=== PATIENT | male | born 1960 | race Caucasian/White ===

== ENCOUNTER 2016-04-26 15:48 | Emergency (ER) | payer OTHER ==
[2016-04-26 16:05] VITALS: BP 136/82; PULSE 97; RESP 16; TEMP 97.1
[2016-04-26] MEDS ORDERED: DIPH,PERTUS(ACELL)TETVAC-LF 0.5 ML VIAL IM ONE (16:05)
--- NOTE | 2016-04-26 16:28 | XR ---
EXAMINATION TYPE: XR hand complete RT DATE OF EXAM ORDERED: 04/26/2016 4:22 PM HISTORY: Crush injury to the distal phalanx of the fifth finger.. COMPARISON: None. FINDINGS: No fracture, dislocation or other acute osseous lesion is seen. There is a soft tissue def ect in the distal phalanx. IMPRESSION: 1. LACERATION OF THE DISTAL PHALANX OF THE RIGHT FIFTH DIGIT. 2. NO ACUTE OSSEOUS LESION.
[2016-04-26] MEDS ORDERED: HYDROcodone/APAP 5-325MG 1 EACH TAB PO STA (17:24)
[2016-04-26] MEDS ORDERED: IBUPROFEN 400 MG TAB PO STA (17:29)
--- NOTE | 2016-04-26 17:35 | ED ---
General Adult HPI - General Chief complaint: Extremity Injury, Upper Stated complaint: Smashed/Finger Time Seen by Provider: 04/26/16 16:04 Source: patient, RN notes reviewed Mode of arrival: ambulatory Limitations: no limitations - History of Present Illness Initial comments: This is a 55-year-old male presents with a crush injury to the right fifth finger. Patient states he was working with a feeding barrel was approximately 250 pounds and he dropped it from about 1 foot onto the right pinky. Patient is not up-to-date on his tetanus shot. Patient is not on any anticoagulants. Patient has chronic numbness and limited range of motion to this finger from a past injury. Patient states that none of this is worse.Patient denies any recent fever, chills, shortness breath, chest pain, abdominal pain, nausea/ vomiting/diarrhea, back pain, hematuria, headache, or visual changes, or any other complaints. - Related Data Previous Rx's Medication Instructions Recorded Cephalexin [Keflex] 500 mg PO Q12HR 7 Days 04/26/16 Allergies Allergy/AdvReac Type Severity Reaction Status Date / Time No Known Allergies Allergy Verified 04/26/16 16:05 Review of Systems ROS Statement: Those systems with pertinent positive or pertinent negative responses have been documented in the HPI. ROS Other: All systems not noted in ROS Statement are negative. Past Medical History Past Medical History: No Reported History History of Any Multi-Drug Resistant Organisms: None Reported Past Surgical History: No Surgical Hx Reported Past Psychological History: No Psychological Hx Reported Smoking Status: Never smoker Past Alcohol Use History: None Reported Past Drug Use History: None Reported General Exam - General Exam Comments Initial Comments: General: The patient is awake and alert, in no distress, and does not appear acutely ill. Neck: The neck is supple, there is no tenderness or JVD. Cardiovascular: There is a regular rate and rhythm. No murmur, rub or gallop is appreciated. Respiratory: Lungs are clear to auscultation, respirations are non-labored, breath sounds are equal. No wheezes, stridor, rales, or rhonchi. Musculoskeletal: There is sensation over the DIP joint of the fifth digit of the right hand. There is a approximately 2 cm laceration to the pad of the fifth digit distal to the DIP joint. The nail is partially removed and corrected with a laceration under the nail bed approximately 3mm. Limited range of motion due to pain and chronic injury, strength 5/5 and Sensation intact. Radial pulses 2+ bilaterally. Capillary refill is normal at less than 2 seconds. Neurological: A&O x 3. CN II-XII intact, There are no obvious motor or sensory deficits. Coordination appears grossly intact. Speech is normal. Skin: See musculoskeletal. Skin is warm and dry and no rashes or lesions are noted. Psychiatric: Normal mood and affect. Limitations: no limitations Course Vital Signs 04/26/16 16:03 Temperature 97.1 F L Pulse Rate 97 Respiratory 16 Rate Blood Pressure 136/82 O2 Sat by Pulse 99 Oximetry Procedures - Procedures Initial comment: The skin was anesthetized with 1% lidocaine. The laceration was then cleansed and irrigated with normal saline. The wound was inspected, and there was no evidence of injury to deep structures. No foreign body was noted in the wound. A total of 12 skin sutures were placed utilizing 5-0 Ethilon. 5-0 Vicryl was used to close the laceration to the nailbed. Nail was removed and reattached with 5-0 Ethilon. Laceration is approx 2 cm. Medical Decision Making - Medical Decision Making Is a 55-year-old male presents to the laceration and crush injury to the fifth digit of the right hand. On physical exam There is sensation over the DIP joint of the fifth digit of the right hand. There is a approximately 2 cm laceration to the pad of the fifth digit distal to the DIP joint. The nail is partially removed and corrected with a laceration under the nail bed approximately 3mm. Limited range of motion due to pain and chronic injury, strength 5/5 and Sensation intact. Radial pulses 2+ bilaterally. Capillary refill is normal at less than 2 seconds. Patient was given a tetanus shot in the [facility] today. The skin was anesthetized with 1% lidocaine. The laceration was then cleansed and irrigated with normal saline. The wound was inspected, and there was no evidence of injury to deep structures. No foreign body was noted in the wound. A total of 12 skin sutures were placed utilizing 5-0 Ethilon. 5-0 Vicryl was used to close the laceration to the nailbed. Nail was removed and reattached with 5-0 Ethilon. Laceration is approx 2 cm. patient will be started on a course of Keflex. Patient was given Cranks for the pain. A finger splint was applied.I discussed that sutures need to be removed in 8-10 days. I discussed that rinsing and showering are okay but to avoid submerging the wound in water. I discussed use of topical Neosporin. I discussed return parameters and signs of infection. Discussed that the sutures under the nailbed will dissolve. Discussed that patient needs to keep splint on to protect the finger and follow up with orthopedics in the next 1-2 days. Discussed that patient should follow up with PCP in one to 2 days or return to the [facility] for any worsening symptoms or for any further concerns. Patient was receptive to this plan and patient will be discharged home. Disposition Clinical Impression: Laceration, Crushing injury of finger of right hand, Nail avulsion, finger Disposition: HOME SELF-CARE Condition: Good Instructions: Finger Fracture (ED) Additional Instructions: Please have sutures need to be removed in 8-10 days. The stitches to the nailbed will dissolve. Please leave splint on to protect the finger. Rinsing and showering are okay but avoid submerging the wound in water. Please use Cranks as prescribed. Please follow-up with orthopedics in the next 1-2 days or return to the [facility] for any worsening symptoms or for any further concerns. Prescriptions: Cephalexin [Keflex] 500 mg PO Q12HR 7 Days Referrals: None,Stated [Primary Care Provider] - 1-2 days Clifton Kevin MD [REFERRING] - 1-2 days Jake Luciano III, MD [STAFF PHYSICIAN] - 1-2 days Gregg Pleitez MD [STAFF PHYSICIAN] - 1-2 days Time of Disposition: 17:43
--- NOTE | 2016-04-26 20:35 | ED ---
Medical Decision Making - Medical Decision Making An x-ray of the right hand was done and reviewed showing: #1 laceration of the distal phalanx of the right fifth digit. #2 no acute osseous lesion. Report read by Dr. Marie. I noticed a possible cortical defect to the distal tuft of the right fifth digit when reviewing the x-ray. Consistent with patient's point of maximal tenderness and injury. Discussed with patient to follow up with orthopedics for this and patient was splinted with a finger splint. Disposition Clinical Impression: Laceration, Crushing injury of finger of right hand, Nail avulsion, finger Disposition: HOME SELF-CARE Condition: Good Instructions: Finger Fracture (ED) Additional Instructions: Please have sutures need to be removed in 8-10 days. The stitches to the nailbed will dissolve. Please leave splint on to protect the finger. Rinsing and showering are okay but avoid submerging the wound in water. Please use Prospect as prescribed. Please follow-up with orthopedics in the next 1-2 days or return to the [facility] for any worsening symptoms or for any further concerns. Prescriptions: Cephalexin [Keflex] 500 mg PO Q12HR 7 Days Referrals: Clifton Kevin MD [REFERRING] - 1-2 days Jake Luciano III, MD [STAFF PHYSICIAN] - 1-2 days None,Stated [Primary Care Provider] - 1-2 days Gregg Pleitez MD [STAFF PHYSICIAN] - 1-2 days
== END 2016-04-26 17:50 | disposition home or self-care (01) ==
LOC: EC 15:48
DX: S61.216A Laceration without foreign body of right little finger without damage to nail, initial encounter (principal); Z23 Encounter for immunization; W20.8XXA Other cause of strike by thrown, projected or falling object, initial encounter
CPT/HCPCS: 12051; 90471; 90715; 99283

== ENCOUNTER 2016-12-09 14:03 | Emergency (ER) | payer OTHER ==
[2016-12-09] MEDS ORDERED: IBUPROFEN 800 MG TAB PO STA (14:17)
[2016-12-09 14:20] VITALS: RESP 18
--- NOTE | 2016-12-09 14:21 | ED ---
General Adult HPI - General Stated complaint: Arm Injury Time Seen by Provider: 12/09/16 14:12 Source: RN notes reviewed - History of Present Illness Initial comments: Patient 55-year-old male who presents emergency room today with a chief complaint of an injury to the left forearm that occurred earlier today. He doesn't that he was working when a piece of steel came down hitting the left forearm. He states he was able to keep working. He states that he's been having some increased pain to the area and now when he moves his left hand and wrist also feeling some pain. Patient denies any direct injury to the hand or wrist. He states that his topical forearm elbow area. Patient denies any complaints symptoms. He is right-handed. Patient denies any recent fever, chills, shortness of breath, chest pain, back pain, abdominal pain, nausea or vomiting, numbness or tingling, dysuria or hematuria, constipation or diarrhea, headaches or visual changes, or any other complaints. - Related Data Previous Rx's Medication Instructions Recorded Ibuprofen [Motrin] 800 mg PO Q6HR #30 tab 12/09/16 Allergies Allergy/AdvReac Type Severity Reaction Status Date / Time No Known Allergies Allergy Verified 12/09/16 14:20 Review of Systems ROS Statement: Those systems with pertinent positive or pertinent negative responses have been documented in the HPI. ROS Other: All systems not noted in ROS Statement are negative. Past Medical History Past Medical History: No Reported History History of Any Multi-Drug Resistant Organisms: None Reported Past Surgical History: No Surgical Hx Reported Past Psychological History: No Psychological Hx Reported Smoking Status: Never smoker Past Alcohol Use History: None Reported Past Drug Use History: None Reported General Exam - General Exam Comments Initial Comments: General: The patient is awake and alert, in no distress, and does not appear acutely ill. Neck: The neck is supple, there is no tenderness or JVD. Cardiovascular: There is a regular rate and rhythm. No murmur, rub or gallop is appreciated. Respiratory: Lungs are clear to auscultation, respirations are non-labored, breath sounds are equal. No wheezes, stridor, rales, or rhonchi. Musculoskeletal: He has normal appearance of left elbow no obvious deformity. Shows good range of motion both flexion/extension. Patient's able to pronate and supinate. Patient does have tenderness at the proximal radial head area over the proximal left forearm. Sensations are intact. Pulses equal bilaterally 2+. No point tenderness to the wrist or hand. No tenderness to left shoulder. Neurological: A&O x 3. CN II-XII intact, There are no obvious motor or sensory deficits. Coordination appears grossly intact. Speech is normal. Skin: Skin is warm and dry and no rashes or lesions are noted. Psychiatric: Normal mood and affect. Course Vital Signs 12/09/16 14:12 Temperature 97.8 F Pulse Rate 83 Respiratory 18 Rate Blood Pressure 131/79 O2 Sat by Pulse 96 Oximetry Medical Decision Making - Medical Decision Making X-ray reviewed negative for any acute fracture dislocation. Results were discussed with the patient. Patient advised most likely contusion to ice elevate and use ibuprofen. Advised to follow-up with orthopedics if symptoms persist for repeat x-ray in 7-10 days. Disposition Clinical Impression: Forearm contusion Disposition: HOME SELF-CARE Condition: Good Instructions: Contusion in Adults (ED) Additional Instructions: Please continue to ice elevate the affected area use ibuprofen for pain. Please follow-up the family doctor or orthopedics in 7-10 days if symptoms persist for repeat x-rays. Please return to emergency room for any other concerns. Prescriptions: Ibuprofen [Motrin] 800 mg PO Q6HR #30 tab Referrals: Sher Alvarez DO [Primary Care Provider] - 1-2 days Obi Liu MD [Medical Doctor] - 1-2 days Time of Disposition: 15:00
--- NOTE | 2016-12-09 14:55 | XR ---
EXAMINATION TYPE: XR elbow complete LT DATE OF EXAM: 12/09/2016 COMPARISON: NONE HISTORY: Pain FINDINGS: Three views of the elbow demonstrate no pathologic joint effusion. The osseous structures are intact . There is no acute fracture or dislocation. Lateral view demonstrates punctate metallic density li pamela representing artifact IMPRESSION: 1. No acute fracture or dislocation. If symptoms persist follow-up study in 7 to 10 days could be ob tained.
--- NOTE | 2016-12-09 14:56 | XR ---
EXAMINATION TYPE: XR forearm LT DATE OF EXAM: 12/09/2016 COMPARISON: NONE HISTORY: Pain Two views of the forearm demonstrate that the osseous structures appear to be intact and the joint sp aces appear to be preserved. There is no acute fracture or dislocation. IMPRESSION: 1. No acute fracture or dislocation
[2016-12-09 15:11] VITALS: BP 130/68; PULSE 82; TEMP 98
== END 2016-12-09 15:10 | disposition home or self-care (01) ==
LOC: EC 14:03
DX: S50.12XA Contusion of left forearm, initial encounter (principal); V91.39XA Hit or struck by falling object due to accident to unspecified watercraft, initial encounter; Y93.89 Activity, other specified
CPT/HCPCS: 99283

== ENCOUNTER 2017-04-12 06:33 | Observation (INO) | payer BC, OTHER ==
[2017-04-05 10:25] VITALS: BMI 31.0
[~2017-04-12 06:33] MED LIST: DEXAMETHASONE SOD PHOSPHATE 10 MG/ML 1 ML VIAL IV ONE; MIDAZOLAM 2 MG/2 ML VIAL IV PRN; MORPHINE SULFATE 4 MG/ML SYRINGE IV PRN; ONDANSETRON 4 MG/2 ML VIAL IVP ONE; SCOPOLAMINE 1.5MG/72HR PATCH TRANSDERM ONE; ceFAZolin IN SWFI 2 GM/20 ML SYRINGE IVP ONE
[2017-04-12] MEDS ORDERED: LIDOCAINE 1% 20 ML VIAL (10MG/ML) FOR IV START INTRADERMA ONE (07:04)
[2017-04-12] MEDS: LACTATED RINGERS 1,000 ML IV SCH ×3 (07:04→20:13)
[2017-04-12] MEDS ORDERED: MIDAZOLAM 2 MG/2 ML VIAL ONE (07:59)
[2017-04-12] MEDS ORDERED: ROCURONIUM BROMIDE 10 MG/ML 10 ML VIAL IV ONE (07:59)
[2017-04-12] MEDS ORDERED: NEOSTIGMINE 1 MG/ML 10 ML VIAL ONE (07:59)
[2017-04-12] MEDS ORDERED: fentaNYL (PF) 50 MCG/ML 2 ML AMP ONE (07:59)
[2017-04-12] MEDS ORDERED: PHENYLEPHRINE-0.9% NACL SYG 1 MG/10 ML SYRINGE ONE (07:59)
[2017-04-12] MEDS ORDERED: GLYCOPYRROLATE 0.2 MG/ML 2 ML VIAL ONE (07:59)
[2017-04-12] MEDS ORDERED: SUCCINYLCHOLINE CHLORIDE 100 MG/5 ML SYR IV ONE (07:59)
[2017-04-12] MEDS ORDERED: PROPOFOL 10 MG/ML 20 ML VIAL IV ONE (07:59)
[2017-04-12] MEDS ORDERED: LIDOCAINE 1% INJ 10MG/ML (20 ML MDV) ONE (07:59)
[2017-04-12] MEDS ORDERED: ceFAZolin 1,000 MG in SODIUM CHLORIDE 0.9% 1,000 ML IRRIGATION ONE (08:52)
[2017-04-12] MEDS ORDERED: ONDANSETRON 4 MG/2 ML VIAL IVP PRN (09:52)
[2017-04-12] MEDS ORDERED: hydrOXYzine PAMOATE 25 MG CAP PO PRN (09:52)
[2017-04-12] MEDS ORDERED: SENNOSIDES-DOCUSATE SODIUM 1 EACH TAB PO PRN (09:52)
[2017-04-12] MEDS ORDERED: TEMAZEPAM 15 MG CAP PO PRN (09:52)
[2017-04-12] MEDS ORDERED: HYDROmorphone 2 MG/ML 1 ML SYRINGE IVP PRN ×2 (09:52)
[2017-04-12] MEDS ORDERED: HYDROcodone/APAP 5-325MG 1 EACH TAB PO PRN (09:52)
[2017-04-12] MEDS: HYDROmorphone 4 MG/ML 1 ML SYRINGE IVP ONE ×3 (10:02→11:04)
[2017-04-12] MEDS: HYDROmorphone 2 MG/ML 1 ML SYRINGE IVP PRN ×2 (14:03→20:16)
[2017-04-12] MEDS: ceFAZolin IN SWFI 2 GM/20 ML SYRINGE IVP SCH ×2 (17:00→23:51)
[2017-04-13] MEDS: LACTATED RINGERS 1,000 ML IV SCH ×2 (04:41→04:45)
[2017-04-13] MEDS: HYDROcodone/APAP 5-325MG 1 EACH TAB PO PRN ×2 (07:38→10:52)
[2017-04-13 07:56] VITALS: BP 128/74; PULSE 81; RESP 16; TEMP 98.8
--- NOTE | 2017-04-13 08:38 | P.DS ---
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 The patient presented to the orthopedic office for evaluation. After discussion and consideration the patient elects to proceed with a rotator cuff repair. The patient was seen preoperatively by his primary care physician and cleared for surgery. The patient was admitted to observation at [facility] on 04/12/2017 for a right shoulder rotator cuff repair with distal clavicle excision and acromioplasty by Dr. Bell. The procedure was performed without complication or sequelae. The patient is doing well postoperatively. Labs and vital signs are stable and day of discharge. On the day of discharge the patient shoulder incision is healing well. There is minimal erythema. There is no drainage noted at this time. There is minimal soft tissue swelling to the right upper extremity. The patient has full hand, wrist, and elbow motion without difficulty or pain. Neurovascular status to the right upper extremity is intact. The patient will be discharged home today in good condition. Patient Condition at Discharge: Stable Plan - Discharge Summary Discharge Rx Participant: Yes New Discharge Prescriptions: New Cephalexin [Keflex] 500 mg PO Q8HR #15 cap Sennosides-Docusate Sodium [Senokot-S] 2 tab PO DAILY #30 tablet traMADol HCl [Ultram] 50 mg PO Q4H PRN #40 tab PRN Reason: Pain Ibuprofen [Motrin] 800 mg PO Q8HR #30 tab Discontinued Acetaminophen [Tylenol] 325 mg PO Q4H PRN PRN Reason: Pain Ibuprofen [Motrin] 800 mg PO Q4-6H PRN PRN Reason: Pain Discharge Medication List Cephalexin [Keflex] 500 mg PO Q8HR #15 cap 04/12/17 [Rx] Sennosides-Docusate Sodium [Senokot-S] 2 tab PO DAILY #30 tablet 04/12/17 [Rx] Ibuprofen [Motrin] 800 mg PO Q8HR #30 tab 04/13/17 [Rx] traMADol HCl [Ultram] 50 mg PO Q4H PRN #40 tab 04/13/17 [Rx] Follow up Appointment(s)/Referral(s): Chepe Bell DO [Doctor of Osteopathic Medicine] - 2 Weeks Patient Instructions/Handouts: Rotator Cuff Tear Repair (DC) Activity/Diet/Wound Care/Special Instructions: Keep incision clean and dry Change dressing daily May shower in 3 days if no drainage from incision Keep arm sling/abductor pillow in place except when bathing Call [facility] with any questions or concerns. [phone] Regular diet. Discharge Disposition: HOME SELF-CARE
--- NOTE | 2017-04-14 10:23 | OP ---
OPERATIVE REPORT DATE OF SERVICE: 04/12/2017 SURGEON: Chepe Bell DO PEDIATRIC PHYSICAL THERAPIST: Meka Monzon NP PREOPERATIVE DIAGNOSIS: Torn right rotator cuff. POSTOPERATIVE DIAGNOSIS: Complete tear of the right rotator cuff. PROCEDURE: Resection to the distal right clavicle, decompression acromioplasty and right rotator cuff repair utilizing two Arthrex bioabsorbable suture anchors. DESCRIPTION OF PROCEDURE: Patient was taken to the operative suite and placed in supine position. General anesthesia was performed by the department of anesthesiology. The patient was placed in the beach chair position, padded and secured. A Betadine prep was carried out over the right shoulder. Sterile drapes were applied in the usual manner. A minimally invasive anterolateral incision was developed over the acromion. Sharp dissection through the subcutaneous tissue was performed. The superior acromioclavicular ligament was identified and resected. The distal 1 cm clavicle was excised with a bone saw. The direct visualization of the large complete rotator cuff tear was noted. There was moderate retraction at this time. The rotator cuff sutured into position utilizing two 5.5 bioabsorbable anchors. There was some deficiency associated with subscapularis and this was brought back into position, also utilizing the bioabsorbable anchor suture. The deltoid was then utilized in approximating back into the acromion with #1 Ethibond suture. Deep fascia was approximated with #1 Vicryl suture in running fashion. The subcutaneous tissue was approximated with 2-0 Vicryl suture interrupted fashion. The skin was approximated with 3-0 Quill suture in subcuticular fashion. The incision was sealed with Dermabond. A sterile dressing was applied. The patient was placed in abductor pillow splint and transferred to the recovery room in satisfactory postop condition. GROSS PATHOLOGY: There was evidence of a complete tear right rotator cuff with mild impaction. There was some deficiency of the anterior subscapularis. MMODL / IJN: [id number] / [facility] INSANEF[facility]
== END 2017-04-13 11:04 | disposition home or self-care (01) ==
LOC: OR 06:33 → 4MS4W 09:42 → OR 04-13 00:05 → 4MS4W 04-13 00:05
PROVIDERS: ADMIT Orthopaedic Surgery; ATTEND Orthopaedic Surgery
DX: M75.121 Complete rotator cuff tear or rupture of right shoulder, not specified as traumatic (principal); M75.41 Impingement syndrome of right shoulder; Z91.81 History of falling
CPT/HCPCS: 23420; 23120; G0378; C1713; J2250; J1170 ×2; J1100; J2710; J2405; J0690 ×2; J2001; J3010; J2370; J0330; J2704

== ENCOUNTER 2020-04-02 07:46 | Day surgery (SDC) | payer OTHER ==
[2020-03-31 09:50] VITALS: BMI 30.2
[~2020-04-02 07:46] MED LIST changes: -DEXAMETHASONE SOD PHOSPHATE 10 MG/ML 1 ML VIAL IV ONE; +LACTATED RINGERS 1,000 ML IV SCH; +LIDOCAINE 1% (10MG/ML) FOR IV START INTRADERMA PRN; -MIDAZOLAM 2 MG/2 ML VIAL IV PRN; -MORPHINE SULFATE 4 MG/ML SYRINGE IV PRN; -ONDANSETRON 4 MG/2 ML VIAL IVP ONE; -SCOPOLAMINE 1.5MG/72HR PATCH TRANSDERM ONE; -ceFAZolin IN SWFI 2 GM/20 ML SYRINGE IVP ONE
[2020-04-02 08:21] VITALS: TEMP 97.7
[2020-04-02 08:26] LABS: Glucose,Whole Blood 136 mg/dL (75-99)
[2020-04-02] MEDS ORDERED: PROPOFOL 10 MG/ML 20 ML VIAL IV ONE (08:37)
[2020-04-02 08:55] VITALS: RESP 16
--- NOTE | 2020-04-02 09:05 | P.PCN ---
Date of Procedure: 04/02/20 Procedure(s) Performed: BRIEF HISTORY: Patient is a 59-year-old pleasant white male scheduled for an elective colonoscopy as a part of screening for colorectal neoplasia. PROCEDURE PERFORMED: Colonoscopy. PREOPERATIVE DIAGNOSIS: Screening for colon cancer. IV sedation per Anesthesia. PROCEDURE: After informed consent was obtained, the patient, was brought into the endoscopy unit. IV sedation was administered by Anesthesia under continuous monitoring. Digital rectal examination was normal. Initially the Olympus CF-160 flexible video colonoscope was then inserted in the rectum, gradually advanced into the cecum without any difficulty. Careful examination was performed as the scope was gradually being withdrawn. Ileocecal valve and the appendiceal orifice were visualized and appeared normal. Prep was excellent. Mucosa of the cecum, ascending colon, transverse colon, descending colon, sigmoid colon, and rectum appeared normal. Retroflexion was performed in the rectum and no lesions were seen. The patient tolerated the procedure well. IMPRESSION: Normal-appearing colon from rectum to cecum with no evidence of colorectal neoplasia. RECOMMENDATIONS: Findings of this examination were discussed with the patient as his family. He was advised to have a repeat screening colonoscopy in 10 years..
[2020-04-02 09:12] VITALS: BP 133/71; PULSE 69
== END 2020-04-02 09:43 | disposition home or self-care (01) ==
LOC: ORWHC2ENDO 07:46
PROVIDERS: ATTEND Internal Medicine Gastroenterology
DX: Z12.11 Encounter for screening for malignant neoplasm of colon (principal); E11.9 Type 2 diabetes mellitus without complications; Z79.84 Long term (current) use of oral hypoglycemic drugs
CPT/HCPCS: J2704; G0121

== ENCOUNTER 2021-03-06 15:49 | Emergency (ER) | payer OTHER ==
[2021-03-06 16:02] VITALS: RESP 18
[2021-03-06] MEDS: KETOROLAC 15 MG/ML 1 ML VIAL IVP STA (16:28)
[2021-03-06] MEDS: SODIUM CHLORIDE 0.9% 1,000 ML IV STA (16:29)
[2021-03-06] MEDS: HYDROmorphone 0.5 MG/0.5 ML SYRINGE IVP STA (16:30)
[2021-03-06] MEDS: SODIUM CHLORIDE 0.9% 500 ML 500 ML IV STA (16:32)
[2021-03-06] MEDS: ONDANSETRON 4 MG/2 ML VIAL IVP STA (16:43)
[2021-03-06 16:47] LABS: Basophils % (A) 1 %; Eosinophils # (A) 0.1 k/uL (0-0.7); Eosinophils % (A) 1 %; HCT 48.5 % (39.0-53.0); HGB 16.4 gm/dL (13.0-17.5); Lymphocytes # (A) 0.7 k/uL (1.0-4.8); Lymphocytes % (A) 12 %; MCH 31.1 pg (25.0-35.0); MCHC 33.7 g/dL (31.0-37.0); MCV 92.1 fL (80.0-100.0); Mean Platelet Volume 9.7; Monocytes # (A) 0.5 k/uL (0-1.0); Monocytes % (A) 8 %; Neutrophils # (A) 4.9 k/uL (1.3-7.7); Neutrophils % (A) 77 %; Platelet Count 111 k/uL (150-450); RBC 5.27 m/uL (4.30-5.90); RDW 12.1 % (11.5-15.5); WBC 6.3 k/uL (3.8-10.6)
[2021-03-06 17:02] LABS: Albumin 4.5 g/dL (3.5-5.0); Calcium 9.3 mg/dL (8.4-10.2); Potassium 4.1 mmol/L (3.5-5.1); Total Bilirubin 0.7 mg/dL (0.2-1.3); Total Protein 7.6 g/dL (6.3-8.2)
[2021-03-06 17:14] LABS: Appearance,Urine Clear (Clear); Bacteria,Urine Rare /hpf; Bilirubin,Urine Negative (Negative); Blood,Urine Large (Negative); Color,Urine Yellow; Glucose,Urine (UA) 3+ (Negative); Hyaline Casts,Urine 1 /lpf (0-2); Ketones,Urine 1+ (Negative); Leukocyte Esterase,Urine Negative (Negative); Mucus,Urine Many /hpf; Nitrite,Urine Negative (Negative); PH, Urine 5.5 (5.0-8.0); Protein,Urine 1+ (Negative); RBC,Urine 162 /hpf (0-5); Squamous Epithelial Cell,Urine 2 /hpf (0-4); Urobilinogen,Urine <2.0 mg/dL (<2.0); WBC,Urine 8 /hpf (0-5)
--- NOTE | 2021-03-06 17:43 | CT ---
EXAMINATION TYPE: CT abdomen pelvis w con DATE OF EXAM: 03/06/2021 COMPARISON: None HISTORY: RLQ pain, fever CT DLP: 1432.1 mGycm Automated exposure control for dose reduction was used. CONTRAST: Performed with IV Contrast, patient injected with 80cc mL of Isovue 300. Images were obtained from the diaphragm to the floor the pelvis with IV contrast. There is mild subsegmental atelectasis at the lung bases. There is no pleural effusion. Heart appears normal. There is no pericardial effusion. There is small hiatal hernia. There are numerous large calcified gallstones. Gallbladder has normal size. Bile ducts are not dilate d. Liver shows no focal defect. Spleen and pancreas appear intact. There is no adrenal mass. Kidneys show satisfactory contrast opacification. There is mild right-sided hydronephrosis and proximal hydroureter. There is 4 mm calculus in the mid right ureter. There is 3 mm calculus lateral left kidney. There is no retroperitoneal adenopathy. Bladder distends smoothly. T here is no inguinal hernia. There is no free fluid in the pelvis. Delayed images show a delayed right side pyelogram. There is no mesenteric edema. There is no ascites or free air. There is no evidence of a bowel obstru ction. There is short appendix which is not dilated. There is possible appendicolith. Lumbar vertebra have normal alignment. There is some mild degenerative disc space narrowing at L3-4 a nd L4-5. There is no compression fracture. The bony pelvis is intact. The hip joints are intact. Ther e is no hip dysplasia. IMPRESSION: Mild right-sided hydronephrosis with 4 mm obstructing calculus in the mid right ureter. There is possible appendicolith. No sign of thickened appendix to suggest appendicitis. Nonobstructing small left renal calculus.
--- NOTE | 2021-03-06 18:04 | ED ---
Abdominal Pain HPI - General Chief Complaint: Abdominal Pain Stated Complaint: Abd Pain Time Seen by Provider: 03/06/21 16:03 Source: patient, RN notes reviewed Limitations: no limitations - History of Present Illness Initial Comments: This a 6-year-old male presents emergency Department chief complaint of right- sided abdominal pain. Patient states that he started having pain earlier today. Patient states abdomen makes it feel better or worse. Patient denies any fevers or chills patient is nausea vomiting or diarrhea no constipation no dysuria no hematuria patient does have a history kidney stones but states it does not feel similar. Patient offers no complaints. - Related Data Home Medications Medication Instructions Recorded Confirmed Pioglitazone [Actos] 45 mg PO DAILY 03/06/21 03/06/21 Rosuvastatin [Crestor] 20 mg PO DAILY 03/06/21 03/06/21 Previous Rx's Medication Instructions Recorded Ketorolac [Toradol] 10 mg PO Q8HR #15 tab 03/06/21 Ondansetron Odt [Zofran Odt] 4 mg PO Q8HR PRN #10 tab 03/06/21 Tamsulosin [Flomax] 0.4 mg PO DAILY #7 cap 03/06/21 Allergies Allergy/AdvReac Type Severity Reaction Status Date / Time No Known Allergies Allergy Verified 03/06/21 17:16 Review of Systems ROS Statement: Those systems with pertinent positive or pertinent negative responses have been documented in the HPI. ROS Other: All systems not noted in ROS Statement are negative. Past Medical History Past Medical History: Diabetes Mellitus History of Any Multi-Drug Resistant Organisms: None Reported Past Surgical History: Orthopedic Surgery Additional Past Surgical History / Comment(s): blas shoulder surgery, surgery for puncture would on abdomen, Past Anesthesia/Blood Transfusion Reactions: No Reported Reaction Past Psychological History: No Psychological Hx Reported Smoking Status: Never smoker Past Alcohol Use History: None Reported Past Drug Use History: None Reported - Past Family History Brother(s) Additional Family Medical History / Comment(s): skin CA Mother Family Medical History: No Reported History General Exam Limitations: no limitations General appearance: alert, in no apparent distress Head exam: Present: atraumatic, normocephalic, normal inspection Respiratory exam: Present: normal lung sounds bilaterally. Absent: respiratory distress, wheezes, rales, rhonchi, stridor Cardiovascular Exam: Present: regular rate, normal rhythm, normal heart sounds. Absent: systolic murmur, diastolic murmur, rubs, gallop, clicks GI/Abdominal exam: Present: soft, tenderness, normal bowel sounds. Absent: distended, guarding, rebound, rigid Back exam: Absent: CVA tenderness (R), CVA tenderness (L) Neurological exam: Present: alert Skin exam: Present: warm, dry, intact, normal color. Absent: rash Course Vital Signs 03/06/21 15:59 Temperature 98.8 F Pulse Rate 96 Respiratory 18 Rate Blood Pressure 157/91 O2 Sat by Pulse 95 Oximetry Medical Decision Making - Medical Decision Making Labs reviewed urinalysis. CT shows evidence of 4 mm stone patient feels greatly improved be discharged in stable condition return parameters were discussed. - Lab Data Result diagrams: 03/06/21 16:33 03/06/21 16:33 Lab Results 03/06/21 03/06/21 03/06/21 Range/Units 16:33 16:33 16:33 WBC 6.3 (3.8-10.6) k/uL RBC 5.27 (4.30-5.90) m/uL Hgb 16.4 (13.0-17.5) gm/dL Hct 48.5 (39.0-53.0) % MCV 92.1 (80.0-100.0) fL MCH 31.1 (25.0-35.0) pg MCHC 33.7 (31.0-37.0) g/dL RDW 12.1 (11.5-15.5) % Plt Count 111 L (150-450) k/uL MPV 9.7 Neutrophils % 77 % Lymphocytes % 12 % Monocytes % 8 % Eosinophils % 1 % Basophils % 1 % Neutrophils # 4.9 (1.3-7.7) k/uL Lymphocytes # 0.7 L (1.0-4.8) k/uL Monocytes # 0.5 (0-1.0) k/uL Eosinophils # 0.1 (0-0.7) k/uL Basophils # 0.0 (0-0.2) k/uL Sodium 139 (137-145) mmol/L Potassium 4.1 (3.5-5.1) mmol/L Chloride 101 (98-107) mmol/L Carbon Dioxide 25 (22-30) mmol/L Anion Gap 13 mmol/L BUN 16 (9-20) mg/dL Creatinine 1.43 H (0.66-1.25) mg/dL Est GFR (CKD-EPI)AfAm 62 (>60 ml/min/1.73 sqM) Est GFR (CKD-EPI)NonAf 53 (>60 ml/min/1.73 sqM) Glucose 175 H (74-99) mg/dL Plasma Lactic Acid Luis (0.7-2.0) mmol/L Calcium 9.3 (8.4-10.2) mg/dL Total Bilirubin 0.7 (0.2-1.3) mg/dL AST 54 (17-59) U/L ALT 54 H (4-49) U/L Alkaline Phosphatase 85 (38-126) U/L Total Protein 7.6 (6.3-8.2) g/dL Albumin 4.5 (3.5-5.0) g/dL Amylase 62 (30-110) U/L Lipase 220 (23-300) U/L Urine Color Yellow Urine Appearance Clear (Clear) Urine pH 5.5 (5.0-8.0) Ur Specific [place] 1.030 (1.001-1.035) Urine Protein 1+ H (Negative) Urine Glucose (UA) 3+ H (Negative) Urine Ketones 1+ H (Negative) Urine Blood Large H (Negative) Urine Nitrite Negative (Negative) Urine Bilirubin Negative (Negative) Urine Urobilinogen <2.0 (<2.0) mg/dL Ur Leukocyte Esterase Negative (Negative) Urine RBC 162 H (0-5) /hpf Urine WBC 8 H (0-5) /hpf Ur Squamous Epith Cells 2 (0-4) /hpf Urine Bacteria Rare H (None) /hpf Hyaline Casts 1 (0-2) /lpf Urine Mucus Many H (None) /hpf 03/06/ Range/Units 16:33 WBC (3.8-10.6) k/uL RBC (4.30-5.90) m/uL Hgb (13.0-17.5) gm/dL Hct (39.0-53.0) % MCV (80.0-100.0) fL MCH (25.0-35.0) pg MCHC (31.0-37.0) g/dL RDW (11.5-15.5) % Plt Count (150-450) k/uL MPV Neutrophils % % Lymphocytes % % Monocytes % % Eosinophils % % Basophils % % Neutrophils # (1.3-7.7) k/uL Lymphocytes # (1.0-4.8) k/uL Monocytes # (0-1.0) k/uL Eosinophils # (0-0.7) k/uL Basophils # (0-0.2) k/uL Sodium (137-145) mmol/L Potassium (3.5-5.1) mmol/L Chloride (98-107) mmol/L Carbon Dioxide (22-30) mmol/L Anion Gap mmol/L BUN (9-20) mg/dL Creatinine (0.66-1.25) mg/dL Est GFR (CKD-EPI)AfAm (>60 ml/min/1.73 sqM) Est GFR (CKD-EPI)NonAf (>60 ml/min/1.73 sqM) Glucose (74-99) mg/dL Plasma Lactic Acid Luis 1.4 (0.7-2.0) mmol/L Calcium (8.4-10.2) mg/dL Total Bilirubin (0.2-1.3) mg/dL AST (17-59) U/L ALT (4-49) U/L Alkaline Phosphatase (38-126) U/L Total Protein (6.3-8.2) g/dL Albumin (3.5-5.0) g/dL Amylase (30-110) U/L Lipase (23-300) U/L Urine Color Urine Appearance (Clear) Urine pH (5.0-8.0) Ur Specific [place] (1.001-1.035) Urine Protein (Negative) Urine Glucose (UA) (Negative) Urine Ketones (Negative) Urine Blood (Negative) Urine Nitrite (Negative) Urine Bilirubin (Negative) Urine Urobilinogen (<2.0) mg/dL Ur Leukocyte Esterase (Negative) Urine RBC (0-5) /hpf Urine WBC (0-5) /hpf Ur Squamous Epith Cells (0-4) /hpf Urine Bacteria (None) /hpf Hyaline Casts (0-2) /lpf Urine Mucus (None) /hpf Disposition Clinical Impression: Urethral calculus Disposition: HOME SELF-CARE Condition: Stable Instructions (If sedation given, give patient instructions): Kidney Stones (ED) Additional Instructions: Please return to the Emergency Department if symptoms worsen or any other concerns. Prescriptions: Tamsulosin [Flomax] 0.4 mg PO DAILY #7 cap Ketorolac [Toradol] 10 mg PO Q8HR #15 tab Ondansetron Odt [Zofran Odt] 4 mg PO Q8HR PRN #10 tab PRN Reason: Nausea Is patient prescribed a controlled substance at d/c from ED?: No Referrals: Sher Alvarez DO [Primary Care Provider] - 1-2 days Toñito Rothman MD [STAFF PHYSICIAN] - 1-2 days Time of Disposition: 18:04
[2021-03-06] MEDS: TAMSULOSIN 0.4 MG CAP.ER.24H PO STA (18:13)
[2021-03-06] MEDS: ACET/COD 300 MG/30 MG STARTER PACK 6 TAB BTL PO STA (18:15)
[2021-03-06] MEDS: ONDANSETRON 4 MG ODT STARTER PACK 2 TAB BTL PO STA (18:15)
[2021-03-06] MEDS: IBUPROFEN 600 MG STARTER PACK 4 TAB BTL PO STA (18:16)
[2021-03-06 18:29] VITALS: BP 145/89; PULSE 84; TEMP 98.9
== END 2021-03-06 18:29 | disposition home or self-care (01) ==
LOC: EC 15:49
DX: N21.1 Calculus in urethra (principal); E11.9 Type 2 diabetes mellitus without complications; Z79.84 Long term (current) use of oral hypoglycemic drugs; Z79.899 Other long term (current) drug therapy
CPT/HCPCS: 36415; 80053; 82150; 83605; 83690; 85025; 81001; 87635; 74177; 99284; 96374; 96375 ×2; 96361; J2405; J1885; S0119; J1170; Q9967

== ENCOUNTER → 2021-03-18 | Outpatient (CLI) | payer OTHER ==
--- NOTE | 2021-03-18 13:27 | XR ---
EXAMINATION TYPE: XR chest 2V DATE OF EXAM: 03/18/2021 COMPARISON: CT 03/06/2021 HISTORY: [id number] COUGH,COVID19 TECHNIQUE: Frontal and lateral views of the chest are obtained. FINDINGS: Patchy density is present at the posterior lung bases. Some mild thickening present of the minor fissure. No evident pneumothorax or pleural effusion. Cardiac mediastinal silhouette is within normal limits. Bones are within normal limits. Aorta is thought to be tortuous. There is a hiatal he rnia present. IMPRESSION: Correlate for pneumonia versus atelectasis, follow-up suggested
== END | disposition home or self-care (01) ==
LOC: RADXRYALE 11:06
PROVIDERS: ATTEND Physician Assistant Medical
DX: U07.1 COVID-19 (principal)
CPT/HCPCS: 71046